=== PATIENT | female | born 1965 | race Caucasian/White ===

== ENCOUNTER 2017-07-01 08:17 | Day surgery (SDC) | payer BC, OTHER ==
[~2017-07-01 08:17] MED LIST: RINGER'S SOLUTION,LACTATED 1,000 ML IV PRN
--- NOTE | 2017-07-01 10:29 | OR ---
Operative Report - Dictated Report Narrative: Date: 07/01/2017 Preoperative diagnosis: Screening for colon cancer Postoperative diagnosis: Normal: Procedure: Total colonoscopy Staff surgeon: Terrence Bingham MD Anesthesia: Mac per GOLF TECHNICIAN EBL: None Specimens: None Description: After informed consent and appropriate sedation the patient was placed in the left lateral decubitus position. A flexible fiberoptic video colonoscope was introduced and advanced under direct vision without difficulty to the cecum. The usual landmarks were identified. Preparation was excellent and excellent views were obtained. The findings were of a normal cecum, ascending colon, Juancarlos flexure, transverse colon, splenic flexure, descending colon, sigmoid colon, and rectum. Retroflex view was normal. The mucosal color, vasculature, and texture were normal throughout. No suspicious masses were seen. The patient tolerated the procedure well without apparent complications and was discharged from the endoscopy suite in stable condition.
[2017-07-01 11:37] VITALS: BP 124/81
== END 2017-07-01 08:18 | disposition home or self-care (01) ==
LOC: AMB 08:17
PROVIDERS: ATTEND Specialist
PROC: 0DJD8ZZ Inspection of Lower Intestinal Tract, Via Natural or Artificial Opening Endoscopic (ICD-10-PCS; principal; 2017-07-01 09:05)
DX: Z12.11 Encounter for screening for malignant neoplasm of colon (principal); K21.9 Gastro-esophageal reflux disease without esophagitis; E03.9 Hypothyroidism, unspecified; M19.90 Unspecified osteoarthritis, unspecified site; F41.8 Other specified anxiety disorders; Z68.30 Body mass index [BMI] 30.0-30.9, adult